=== PATIENT | female | born 2005 | race Two or more races ===

== ENCOUNTER 2024-09-07 10:34 | Emergency (ER) | payer MEDICAID, OTHER ==
[~2024-09-07] VITALS: Ht 172.7 cm; Wt 79.0 kg
[2024-09-07] MEDS ORDERED: HYDR-4902 PO (12:06)
[2024-09-07 12:11] VITALS: TEMP 98.5
[2024-09-07] MEDS: ONDANSETRON HCL 4 MG/2 ML VIAL IV ONE (12:16)
[2024-09-07] MEDS: MORPHINE SULFATE 4 MG/ML SYR/VIAL IV ONE (12:16)
[2024-09-07 12:58] VITALS: BP 130/82; PULSE 93; RESP 16; O2SAT 100
== END 2024-09-07 13:00 | disposition home or self-care (01) ==
LOC: EDBD 10:34 → EDSEX 10:34 → ER 10:34
DX: S42.032A Displaced fracture of lateral end of left clavicle, initial encounter for closed fracture (principal); V49.9XXA Car occupant (driver) (passenger) injured in unspecified traffic accident, initial encounter; Y93.89 Activity, other specified; Y92.89 Other specified places as the place of occurrence of the external cause; Y99.8 Other external cause status
CPT/HCPCS: 73000; 73030; 96374; 96375; 99284; J2270; J2405